=== PATIENT | male | born 1990 | race Caucasian/White ===

== ENCOUNTER 2021-01-09 09:40 | Outpatient (CLI) | payer OTHER, SELFPAY ==
[2021-01-09 10:02] VITALS: BP 118/80; PULSE 80; RESP 16; TEMP 36.6; O2SAT 98; BMI 32.5
[2021-01-09] MEDS: ondansetron 2 mg/ML SDV 2 mL 4 MG IVP (10:12)
[2021-01-09 10:41] VITALS: BP 108/72; PULSE 65; RESP 16; O2SAT 94
[2021-01-09 11:42] VITALS: BP 117/78; PULSE 63; RESP 16; TEMP 37.1; O2SAT 97
== END 2021-01-09 11:44 | disposition home or self-care (01) ==
LOC: OPS 09:48
PROVIDERS: PCP Electrodiagnostic Medicine; Visit Provider Nurse Practitioner Family
DX: U07.1 COVID-19 (principal)
CPT/HCPCS: 96365; 96375; J2405

== ENCOUNTER → 2021-04-16 18:19 | Outpatient (BNVA) | payer OTHER, SELFPAY | PROVIDERS: PCP Electrodiagnostic Medicine; Visit Provider Nurse Practitioner | DX: R50.9 Fever, unspecified (principal) | CPT/HCPCS: 87400 ==